=== PATIENT | male | born 1965 | race African-American/Black ===

== ENCOUNTER 2019-05-05 13:56 | Emergency (ER) | payer OTHER ==
[~2019-05-05] VITALS: Ht 170.2 cm; Wt 85.0 kg
[2019-05-05] MEDS ORDERED: IBUPROFEN 800MG TABLET PO ONE (17:30)
[2019-05-05] MEDS ORDERED: ACETAMINOPHEN 500MG TABLET PO ONE (17:30)
[2019-05-05 18:09] VITALS: BP 101/79
== END 2019-05-05 18:42 | disposition home or self-care (01) ==
LOC: ER 13:56
DX: S39.011A Strain of muscle, fascia and tendon of abdomen, initial encounter (principal); M54.30 Sciatica, unspecified side; M79.605 Pain in left leg; I10 Essential (primary) hypertension; F17.200 Nicotine dependence, unspecified, uncomplicated; F12.10 Cannabis abuse, uncomplicated; X58.XXXA Exposure to other specified factors, initial encounter; Y93.89 Activity, other specified; Y92.89 Other specified places as the place of occurrence of the external cause; Y99.8 Other external cause status
CPT/HCPCS: 99283

== ENCOUNTER 2019-05-06 09:35 | Emergency (ER) | payer OTHER ==
[~2019-05-06] VITALS: Ht 170.2 cm; Wt 84.0 kg
[2019-05-06 10:33] VITALS: BP 156/104
== END 2019-05-06 10:34 | disposition home or self-care (01) ==
LOC: ER 09:43
DX: Z00.00 Encounter for general adult medical examination without abnormal findings (principal); I10 Essential (primary) hypertension
CPT/HCPCS: 99282

== ENCOUNTER 2020-05-21 03:41 | Emergency (ER) | payer SELFPAY | END 2020-05-21 04:32 | disposition left against medical advice (07) | LOC: ER 03:52 | DX: Z53.21 Procedure and treatment not carried out due to patient leaving prior to being seen by health care provider (principal) ==

== ENCOUNTER 2024-05-13 15:05 | Emergency (ER) | payer OTHER ==
[~2024-05-13] VITALS: Ht 177.8 cm; Wt 85.0 kg
[2024-05-13 15:17] VITALS: BP 166/111; PULSE 83; TEMP 98.1; O2SAT 99
[2024-05-13] MEDS ORDERED: TOPUD MT (16:29)
[2024-05-13] MEDS ORDERED: IBUP-1523 MT (16:29)
[2024-05-13 16:30] VITALS: RESP 17
[2024-05-13] MEDS: ACETAMINOPHEN 325MG TABLET PO ONE (17:00)
== END 2024-05-13 17:55 | disposition home or self-care (01) ==
LOC: ER 15:05
DX: M25.531 Pain in right wrist (principal); I10 Essential (primary) hypertension
CPT/HCPCS: 73110; 99283